=== PATIENT | male | born 1980 | race American Indian/Alaskan Native ===

== ENCOUNTER 2017-02-15 18:32 | Emergency (ER) | payer OTHER ==
[2017-02-16] MEDS ORDERED: MOTRIN PO ONE (02:03)
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
[2017-02-16 04:11] VITALS: BP 149/80
== END 2017-02-16 04:11 | disposition home or self-care (01) ==
LOC: ED 18:32
DX: S13.4XXA Sprain of ligaments of cervical spine, initial encounter (principal); S39.012A Strain of muscle, fascia and tendon of lower back, initial encounter; S86.911A Strain of unspecified muscle(s) and tendon(s) at lower leg level, right leg, initial encounter; S86.912A Strain of unspecified muscle(s) and tendon(s) at lower leg level, left leg, initial encounter; E11.9 Type 2 diabetes mellitus without complications; J45.909 Unspecified asthma, uncomplicated; V89.2XXA Person injured in unspecified motor-vehicle accident, traffic, initial encounter; Y93.89 Activity, other specified; Y99.8 Other external cause status; Y92.410 Unspecified street and highway as the place of occurrence of the external cause
CPT/HCPCS: 99283